=== PATIENT | female | born 1990 | race Caucasian/White ===

== ENCOUNTER 2017-03-10 06:50 | Inpatient (IN) | payer OTHER ==
[~2017-03-10] VITALS: Ht 160 cm; Wt 81.8 kg
[2017-03-10 07:02] VITALS: BP 107/65; PULSE 74; RESP 18
[2017-03-10] MEDS ORDERED: PRENAT PO (07:17)
[2017-03-10] MEDS ORDERED: FERR236T PO (07:18)
[2017-03-10] MEDS ORDERED: CALC600T11 PO (07:18)
[2017-03-10] MEDS ORDERED: OXYTOCIN 30 UNITS/LR 500 ML IV SCH (07:30)
[2017-03-10] MEDS ORDERED: MISOPROSTOL 200 MCG TAB PR PRN ×2 (07:30→10:00)
[2017-03-10] MEDS ORDERED: CARBOPROST 250 MCG INJ IM PRN ×2 (07:30→10:00)
[2017-03-10] MEDS ORDERED: OXYTOCIN 30 UNITS/LR 500 ML IV PRN ×2 (07:30→10:00)
[2017-03-10] MEDS ORDERED: METHYLERGONOVINE 0.2 MG INJ IM PRN ×2 (07:30→10:00)
[2017-03-10] MEDS ORDERED: CEFAZOLIN 2 GM/50 ML (PMX) 50 ML IV SCH (07:30)
[2017-03-10 07:57] LABS: ADD SCAN DIFF NO
[2017-03-10 08:03] LABS: BASOPHILS % 0.2 % (0.0-2.0); EOSINOPHILS # 0.1 10^3/ul (0.0-0.5); EOSINOPHILS % 1.5 % (0.0-7.0); HEMATOCRIT 36.4 % (37.0-47.0); HEMOGLOBIN 11.8 g/dl (12.0-16.0); LYMPHOCYTES # 1.7 10^3/ul (0.8-2.9); MEAN CORPUSCULAR HEMOGLOBIN 29.6 pg (29.0-33.0); MEAN CORPUSCULAR HGB CONC 32.4 g/dl (32.0-37.0); MEAN CORPUSCULAR VOLUME 91.2 fl (82.0-101.0); MEAN PLATELET VOLUME 12.5 fl (7.4-10.4); MONOCYTE # 0.6 10^3/ul (0.3-0.9); MONOCYTES % 9.8 % (0.0-11.0); NEUTROPHIL # 3.6 10^3/ul (1.6-7.5); NEUTROPHILS % 59.5 % (39.0-77.0); PLATELET COUNT 169 10^3/UL (140-415); RED BLOOD COUNT 3.99 10^6/ul (4.20-5.40); RED CELL DISTRIBUTION WIDTH 14.9 % (11.5-14.5)
[2017-03-10] MEDS: LACTATED RINGER'S 1,000 ML IV SCH ×4 (08:05→18:54)
[2017-03-10 08:34] LABS: INR 0.85; PARTIAL THROMBOPLASTIN TIME 24.3 Sec (25.0-35.0); PROTIME 11.6 Sec (12.2-14.2); PT RATIO 0.9
[2017-03-10] MEDS ORDERED: METOCLOPRAMIDE 10 MG INJ ONE (08:48)
[2017-03-10] MEDS ORDERED: OXYTOCIN 10 UNIT INJ ONE (08:48)
[2017-03-10] MEDS ORDERED: ONDANSETRON 4 MG INJ ONE (08:48)
[2017-03-10] MEDS ORDERED: OXYTOCIN 30 UNITS/LR 500 ML IV ONE (08:48)
[2017-03-10] MEDS ORDERED: EPHEDrine SULFATE 50 MG/5 ML SYG ONE (08:48)
[2017-03-10] MEDS ORDERED: morphine SULFATE/PF (10 MG/10 ML) INJ ONE (08:48)
--- NOTE | 2017-03-10 09:04 | PREOPHP ---
DATE OF ADMISSION: 03/10/2017 HISTORY OF PRESENT ILLNESS: Ms. Gudelia Nagy is a 27-year-old 3, para 1, EDC 03/17/2017 , intrauterine at 39 weeks gestational age, admitted today for elective repeat de deondre. She denies any contractions, vaginal bleeding, or discharge. Her care took place at [facility]. MEDICAL HISTORY: None. MEDICATIONS: vitamins. PAST SURGICAL HISTORY: x1 in 2007 and cholecystectomy in 2013. OBSTETRIC HISTORY: x1 , x1 missed AB. GYNECOLOGIC HISTORY: 10, regular 3 to 4 days. Denies any sexually transmitted diseases. Sexually active with 1 partner. SOCIAL HISTORY: Denies any smoking, drugs, or alcohol. FAMILY HISTORY: None. PHYSICAL EXAMINATION: HEENT: Within normal. LUNGS: CTA bilateral. CARDIOVASCULAR: S1, S2, regular rhythm. ABDOMEN: Gravid, nontender. Negative CVA bilateral. EXTREMITIES: Negative edema. No calf tenderness. PELVIC: Vaginal exam deferred. ASSESSMENT: A 27-year-old 3, para 1, intrauterine at 39 weeks' gestational age, p revious section x1, desires elective repeat delivery, declined vaginal after . PLAN: Consent for repeat delivery. Risks, benefits, and alternatives explained. All ques tions were answered. Dictated By: SERVANDO BARRAGAN/BIANCA Conf#: [id number] DID#: [id number]
[2017-03-10] MEDS ORDERED: LANOLIN 7 GM TUBE TOP PRN (10:00)
[2017-03-10] MEDS ORDERED: NALOXONE (0.4 MG/ML) INJ IV PRN (10:30)
[2017-03-10] MEDS ORDERED: ONDANSETRON 4 MG INJ IV PRN (10:30)
[2017-03-10] MEDS ORDERED: morphine 2 MG INJ IV PRN ×2 (10:30)
[2017-03-10] MEDS ORDERED: HYDROmorphONE 1 MG/ML SYG IV PRN ×2 (10:30)
[2017-03-10] MEDS ORDERED: EPHEDrine SULFATE 50 MG/5 ML SYG IV PRN (10:30)
[2017-03-10] MEDS ORDERED: morphine SULFATE/PF (10 MG/10 ML) INJ SPINAL ONE (10:30)
[2017-03-10] MEDS: OXYTOCIN 30 UNITS/LR 500 ML IV SCH ×4 (11:07→23:00)
--- NOTE | 2017-03-10 11:24 | OPR ---
DATE OF OPERATION: 03/10/2017 PREOPERATIVE DIAGNOSIS: Intrauterine at 39 weeks gestational age, previous section x1, desires elective repeat delivery. Declined vaginal after . POSTOPERATIVE DIAGNOSIS: Intrauterine at 39 weeks gestational age, previous section x1, desires elective repeat delivery. Declined vaginal after . OPERATION PERFORMED: Repeat low transverse delivery via Pfannenstiel incision. SURGEON: Darwin Daniel MD HEALTH INFORMATION TECH: Osmany Watt MD ANESTHESIA: Spinal. COMPLICATIONS: None. ESTIMATED BLOOD LOSS: 500 mL FINDINGS: A viable male, 9 and 9 respectively at 1 and 5 minutes, weight 8 pounds 0 ounces. Normal uterus, tubes, and ovaries. DESCRIPTION OF PROCEDURE: The patient was taken to the operating room where spinal anesthesia was found to be adequate. She was then prepared and draped in a normal sterile fashion in dorsal supine position with a leftward tilt. Pfannenstiel skin incision was then made with a scalpel and carried to the underlying fascia. The fascia was incised in the midline, and the incision was extended laterally with Coffman scissors. The superior aspect of the fascial incision was grasped with curved clamps, elevated, and the underlying rectus muscles dissected off bluntly. Attention was then turned to the inferior aspect of the incision which, in similar fashion, was grasped, tented up with curved clamps, and the rectus muscles dissected off bluntly. The rectus muscles in midline, peritoneum identified, tented up and entered sharply with Metzenbaum scissors. The peritoneal incision was extended superiorly with good visualization of the bladder. The bladder blade was then inserted and the vesicouterine peritoneum identified, grasped with pickups, and entered sharply with Metzenbaum scissors. This incision was extended laterally and a bladder flap created digitally. The bladder blade was then reinserted and the lower segment incised in transverse fashion with a scalpel. The uterine incision was extended laterally. The bladder blade was removed and the infant's head delivered atraumatically. The nose and mouth were suctioned and cord clamped and cut. was handed off to awaiting patent searcher. The placenta was then removed. The uterus was exteriorized and cleared of all clots and debris. The uterine incision was repaired with 1-0 chromic in a running locked fashion. A second layer of same suture was used for imbrication obtaining excellent hemostasis. The uterus was returned to the abdomen. The gutters were cleared of all clots. Interceed was applied to the anterior uterus. The peritoneum and rectus abdominis muscles were reapproximated with 3- 0 Vicryl in interrupted fashion. The fascia was reapproximated with 0 Vicryl in running fashion. The subcutaneous tissue was reapproximated with 2-0 plain gut in a running fashion. The skin was closed with serena. The patient tolerated procedure well. Sponge, lap, and needle counts correct x2. The patient was taken to recovery room in stable condition. Dictated By: DARWIN BARRAGAN/BIANCA Conf#: [id number] DID#: [id number] RIVERA
[2017-03-10] MEDS: KETOROLAC 30 MG INJ IV PRN ×2 (11:51→20:12)
[2017-03-10] MEDS: IBUPROFEN 600 MG TAB PO SCH ×2 (12:00→18:00)
[2017-03-10] MEDS: DIPHENHYDRAMINE 50 MG INJ IV PRN (12:37)
[2017-03-10 13:20] VITALS: BP 105/58; PULSE 72; RESP 18
[2017-03-10 13:59] VITALS: BP 105/57; PULSE 67; RESP 18
[2017-03-10 15:50] VITALS: BP 108/63; PULSE 64; RESP 18
[2017-03-10 20:12] VITALS: BP 119/74; PULSE 78; RESP 18
[2017-03-10] MEDS: SENNA/DOCUSATE NA (8.6MG/50MG) TAB PO SCH (21:35)
[2017-03-11] MEDS: LACTATED RINGER'S 1,000 ML IV SCH ×3 (02:36→18:00)
[2017-03-11] MEDS: OXYTOCIN 30 UNITS/LR 500 ML IV SCH ×6 (03:00→23:00)
[2017-03-11] MEDS: KETOROLAC 30 MG INJ IV PRN ×2 (03:36→08:55)
[2017-03-11 03:50] VITALS: BP 102/55; PULSE 71; RESP 18
[2017-03-11] MEDS: IBUPROFEN 600 MG TAB PO SCH ×5 (06:00→23:46)
[2017-03-11 07:37] LABS: ADD SCAN DIFF NO
[2017-03-11 07:44] VITALS: BP 118/69; PULSE 77; RESP 18
[2017-03-11 07:49] LABS: BASOPHILS % 0.1 % (0.0-2.0); EOSINOPHILS # 0.1 10^3/ul (0.0-0.5); EOSINOPHILS % 1.4 % (0.0-7.0); HEMATOCRIT 30.3 % (37.0-47.0); HEMOGLOBIN 9.8 g/dl (12.0-16.0); LYMPHOCYTES # 1.8 10^3/ul (0.8-2.9); LYMPHOCYTES % 22.7 % (15.0-51.0); MEAN CORPUSCULAR HEMOGLOBIN 29.7 pg (29.0-33.0); MEAN CORPUSCULAR HGB CONC 32.3 g/dl (32.0-37.0); MEAN CORPUSCULAR VOLUME 91.8 fl (82.0-101.0); MEAN PLATELET VOLUME 12.8 fl (7.4-10.4); MONOCYTE # 0.6 10^3/ul (0.3-0.9); MONOCYTES % 7.2 % (0.0-11.0); NEUTROPHIL # 5.4 10^3/ul (1.6-7.5); NEUTROPHILS % 68.2 % (39.0-77.0); PLATELET COUNT 131 10^3/UL (140-415); RED CELL DISTRIBUTION WIDTH 14.9 % (11.5-14.5)
[2017-03-11] MEDS: DIPHENHYDRAMINE 50 MG INJ IV PRN (08:48)
[2017-03-11] MEDS: SENNA/DOCUSATE NA (8.6MG/50MG) TAB PO SCH ×2 (08:49→21:09)
[2017-03-11 16:00] VITALS: BP 102/62; PULSE 94; RESP 18
[2017-03-11] MEDS: OXYCODONE/ACETAMINOPHEN (5/325) TAB PO PRN ×2 (16:41→23:46)
--- NOTE | 2017-03-11 19:07 | QN ---
Documentation Comment pod 1 patient seen and evaluated no complaints positive ambulation tolerating diet, voiding vs stable afebrile abd dressing clean no distention clean extremity no edema no calf tenderness a/ sp cs pod 1, doing well p/ iron supplement SERVANDO AMBROSE MD Mar 11, 2017 19:06
[2017-03-11 20:00] VITALS: BP 123/65; PULSE 70; RESP 20
[2017-03-11] MEDS: FERROUS SULFATE (EC) 325 MG TAB PO SCH (21:09)
[2017-03-12] MEDS: LACTATED RINGER'S 1,000 ML IV SCH ×3 (02:00→18:00)
[2017-03-12] MEDS: OXYTOCIN 30 UNITS/LR 500 ML IV SCH ×6 (03:00→23:00)
[2017-03-12 03:16] VITALS: BP 123/60; RESP 18
[2017-03-12] MEDS: IBUPROFEN 600 MG TAB PO SCH ×4 (05:36→23:44)
[2017-03-12 08:18] VITALS: BP 105/63; PULSE 59; RESP 18
[2017-03-12] MEDS: FERROUS SULFATE (EC) 325 MG TAB PO SCH ×2 (08:20→20:58)
[2017-03-12] MEDS: SENNA/DOCUSATE NA (8.6MG/50MG) TAB PO SCH ×2 (08:20→20:58)
[2017-03-12] MEDS: OXYCODONE/ACETAMINOPHEN (5/325) TAB PO PRN ×2 (08:27→20:58)
--- NOTE | 2017-03-12 19:49 | PD.PPDC ---
MEASUREMENT OPERATOR Discharge Instruction Condition Patient Condition: Good Diet Diet: Resume Regular Diet Activity/Restrictions Restrictions: No Sexual Activity Nothing in the Vagina No [place] No Tampons, douche Follow-up Follow-up with Physician: 2, Week/Weeks Return to clinic for CHEMICAL ENGINEERING TECHNOLOGIST Instructions: Fever greater than 101 Chills Worsening abdominal pain Excessive Vaginal Bleeding More than 2 pads per hour Unable to tolerate diet OB Instructions: Breast Tenderness Depression Blurried Vision Headache Surgical Instructions: Incisional Drainage Incisional Redness SERVANDO AMBROSE MD Mar 12, 2017 19:49
--- NOTE | 2017-03-12 19:59 | PD.PPDC ---
NET SOFTWARE ENGINEER Discharge Instruction Condition Patient Condition: Good Diet Diet: Resume Regular Diet Activity/Restrictions Restrictions: No Sexual Activity Nothing in the Vagina No [place] No Tampons, douche Follow-up Follow-up with Physician: 2, Day/Days, Week/Weeks Provider Information: follow up this saturday or saturday to remove serena Return to clinic for CHARGER Instructions: Fever greater than 101 Chills Worsening abdominal pain Excessive Vaginal Bleeding More than 2 pads per hour Unable to tolerate diet OB Instructions: Breast Tenderness Depression Blurried Vision Headache Surgical Instructions: Incisional Drainage Incisional Redness SERVANDO AMBROSE MD Mar 12, 2017 19:59
[2017-03-12 20:00] VITALS: BP 108/67; PULSE 89; RESP 20
[2017-03-13] MEDS: LACTATED RINGER'S 1,000 ML IV SCH (02:00)
[2017-03-13] MEDS: OXYTOCIN 30 UNITS/LR 500 ML IV SCH (03:00)
[2017-03-13 04:21] VITALS: BP 118/70; PULSE 70; RESP 20
[2017-03-13] MEDS: IBUPROFEN 600 MG TAB PO SCH ×2 (05:40→12:32)
--- NOTE | 2017-03-13 06:09 | DS ---
DATE OF ADMISSION: 03/10/2017 DATE OF DISCHARGE: 03/13/2017 PRIMARY DIAGNOSIS: Intrauterine at 39 weeks' gestational age, previous section x 1, desires elective delivery. Declined vaginal after . PROCEDURE: Repeat low transverse delivery. CONDITION ON DISCHARGE: Stable. ACTIVITY: None per vagina, no heavy lifting x6 weeks. DIET: Regular. MEDICATIONS ON DISCHARGE: 1. Motrin. 2. Percocet. 3. Iron. 4. Colace. DISCHARGE SUMMARY: Ms. Gudelia Nagy is a 27-year-old 3, para 2, status post repeat low transverse delivery on 03/10/2017. She had a viable male, 9 and 9 respectively at on e and five minutes, weight 8 pounds 0 ounces. She had an uneventful postop day 1 and 2. She was di scharged on postop day 3. Her incision is clean, dry, and intact. She is ambulating, tolerating di et, positive flatulence, positive bowel movement. She will follow up in the office this Saturday or to remove her serena. Dictated By: SERVANDO BARRAGAN/BIANCA Conf#: [id number] DID#: [id number]
[2017-03-13 08:00] VITALS: BP 102/62; PULSE 67; RESP 18
[2017-03-13] MEDS: FERROUS SULFATE (EC) 325 MG TAB PO SCH (09:23)
[2017-03-13] MEDS: SENNA/DOCUSATE NA (8.6MG/50MG) TAB PO SCH (09:23)
[2017-03-13] MEDS: OXYCODONE/ACETAMINOPHEN (5/325) TAB PO PRN (14:35)
== END 2017-03-13 15:20 | disposition home or self-care (01) | DRG 766 ==
LOC: MERGE 06:50 → EDBD 06:50 → L-D 06:50 → PP1 14:01
PROVIDERS: ADMIT Obstetrics & Gynecology; ATTEND Obstetrics & Gynecology
PROC: 10D00Z1 Extraction of Products of Conception, Low, Open Approach (ICD-10-PCS; principal; 2017-03-10 08:30)
DX: O34.211 Maternal care for low transverse scar from previous cesarean delivery (principal); Z37.0 Single live birth; Z3A.39 39 weeks gestation of pregnancy
CPT/HCPCS: 85025; 85610; 85730; 86592; 86850; 86900; 86901; 94760; 99464; J0690; J1200; J1885; J2274; J2405; J2590; J2765; J7120